=== PATIENT | male | born 1980 | race Caucasian/White ===

== ENCOUNTER 2023-07-06 10:40 | Outpatient (CLI) | payer OTHER ==
--- NOTE | 2023-07-06 16:38 | XRAY Report ---
PROCEDURE: Hand 3 View RT INDICATIONS: DOG BITE TO RIGHT HAND TECHNIQUE: 3 views of the hand(s) acquired. COMPARISON: None. FINDINGS: Bones: No fractures or dislocations. No suspicious bony lesions. Soft tissues: No suspicious soft tissue calcifications or masses. IMPRESSION: No acute fracture. No osseous lesion. If symptoms and/or clinical suspicion for pathology continue, f urther assessment with repeat plain films, or advanced imaging (e.g., CT, MRI, or bone scan) is recom mended for further assessment. Reviewed by: Bladimir Workman MD on 07/06/2023 4:36 PM PST Approved by: Bladimir Workman MD on 07/06/2023 4:36 PM PST Station ID: [id number]
== END 2023-07-06 23:59 | disposition home or self-care (01) ==
LOC: DI.S 10:40
PROVIDERS: ATTEND Emergency Medicine
DX: S61.451A Open bite of right hand, initial encounter (principal)

== ENCOUNTER 2023-07-07 08:42 | Outpatient (CLI) | payer OTHER ==
[2023-07-07 15:56] LABS: ALBUMIN 4.5 g/dL (3.2-5.5); ALBUMIN/GLOBULIN RATIO 1.7 (1.0-2.2); ALKALINE PHOSPHATASE 47 IU/L (42-121); ALT ALANINE AMINOTRANSFERASE 33 IU/L (10-60); AST ASPARTATE AMINOTRANSFERASE 29 IU/L (10-42); BILIRUBIN,TOTAL 0.7 mg/dL (0.2-1.0); BUN - BLOOD UREA NITROGEN 13 mg/dL (6-20); CALCIUM 9.3 mg/dL (8.5-10.3); CARBON DIOXIDE - CO2 27 mmol/L (21-32); CHLORIDE 105 mmol/L (101-111); CHOL/HDL RATIO 4.5 (<5.0); CHOLESTEROL 217 mg/dL; GFR - MDRD 81 (>89); GLUCOSE 95 mg/dL (74-104); HDL CHOLESTEROL 48 mg/dL; POTASSIUM 4.1 mmol/L (3.5-4.5); SODIUM 138 mmol/L (135-145); TOTAL PROTEIN 7.1 g/dL (6.4-8.9); TRIGLYCERIDES 408 mg/dL (48-352)
[2023-07-07 16:14] LABS: LDL CHOLESTEROL,DIRECT 110 mg/dL (75-193); LDLD/HDL RATIO 2.3 (<3.6)
== END 2023-07-07 08:43 | disposition home or self-care (01) ==
LOC: LAB.S 08:42
PROVIDERS: ATTEND Internal Medicine Cardiovascular Disease
DX: E78.1 Pure hyperglyceridemia (principal)
CPT/HCPCS: 36415; 80053; 80061; 83721